=== PATIENT | male | born 2000 | race Native Hawaiian/Other Pacific Islander ===

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

== ENCOUNTER 2022-02-05 12:10 | Emergency (ER) | payer OTHER ==
[~2022-02-05] VITALS: Ht 185.4 cm; Wt 65.8 kg
[2022-02-05 12:14] VITALS: TEMP 97.6
[2022-02-05 13:02] LABS: PLATELET COUNT 294 K/uL (142-355)
[2022-02-05 13:11] LABS: POTASSIUM 3.2 mmol/L (3.6-5.2)
[2022-02-05 15:20] VITALS: BP 114/61
== END 2022-02-05 15:20 | disposition home or self-care (01) ==
LOC: ED 12:10
PROVIDERS: Emergency Medicine
DX: M62.82 Rhabdomyolysis (principal); E87.6 Hypokalemia
CPT/HCPCS: 36415; 80048; 80307; 81002; 82550; 85027; 96360; 99284